=== PATIENT | female | born 1950 | race Caucasian/White ===

== ENCOUNTER 2019-04-23 12:16 | Emergency (ER) | payer MEDICARE, BC, OTHER, SELFPAY ==
[2019-04-23 12:20] VITALS: BP 157/73; PULSE 77; RESP 16; TEMP 36.5; O2SAT 99
--- NOTE | 2019-04-23 12:38 | W.ED.GENAD ---
Discharge Plan Disposition Patient Disposition: HOME Discharge Details Chief Complaint: Laceration Clinical Impression: Laceration of finger of right hand Primary Care Provider: Mik Ortiz ED Provider: Murphy David Home Meds and New Rx's Prescriptions: Continued Cholest Off 450 MG tablet 1 tab PO DAILY RF: 0 cholecalciferol (vitamin D3) [Vitamin D3] 25 mcg (1,000 unit) Capsule 1 mcg PO DAILY RF: 0 colostrum, bovine 500 mg Capsule 500 mg PO DAILY RF: 0 Discharge Instructions Instructions: Finger Laceration (ED), Skin Adhesive Care (ED) Additional Instructions: Keep wound clean, dry, and protected. Change dressing daily and monitor for signs of infection including increased redness, warmth, swelling or discharge. Please contact your primary care physician to arrange follow-up. Return to the ER for any worsening or new concerning symptoms. Referrals: Mik Ortiz MD [Primary Care Provider] - Discharge Data Discharge Date/Time-TO BE ENTERED AT DEPARTURE: 04/23/19 13:52 Medical Decision Making 68-year-old female here with right index finger laceration. Neurovascular intact distally. Wound was anesthetized with lidocaine topical and irrigated with copious sterile saline. Wound repaired with skin adhesive. HPI General Mode of arrival: ambulatory. Date/Time Provider Initiated Documentation: 04/23/19 12:27. Limitations to Documentation: no limitations. Information obtained by: patient. HPI Narrative: 68-year-old female presents with chief complaint of laceration. Patient notes she sustained laceration to her right second digit just prior to arrival. Wound was bleeding initially. Bleeding is improved. No modifiers. Wound is painful. Patient is unsure of last tetanus. Related Data Home Medications Medication Instructions Recorded Confirmed Cholest Off 1 tab PO DAILY 10/06/13 04/23/19 cholecalciferol (vitamin D3) 1 mcg PO DAILY 04/23/19 04/23/19 [Vitamin D3] colostrum, bovine 500 mg PO DAILY 04/23/19 04/23/19 Allergies Allergy/AdvReac Type Severity Reaction Status Date / Time No Known Allergies Allergy Unverified 04/23/19 12:23 General Stated Complaint: Laceration EMILIANA: 4 Review of Systems Musculoskeletal Musculoskeletal: Denies muscle weakness, Denies numbness and Denies tingling Integumentary/Breasts Skin/Breast: Reports as per HPI Neurologic Neurologic: Denies numbness and Denies tingling [facility] Surgical History Biopsy of breast (~2004) B/L section 1977 1975 Colonoscopy - MAC 2001; TUBULAR ADENOMA SKIN BX (~2005) MICROCALCIFICATIONS/REMOVED Tonsillectomy and adenoidectomy (~1980) Family History Mother Essential hypertension Personal history of malignant neoplasm BREAST Heart disease COPD (chronic obstructive pulmonary disease) SMOKER Father , [place] at age 93. Essential hypertension Heart disease CABG/ AORTIC ANEURYSM Hyperlipidemia Myocardial infarction Stroke TIA'S Sister Essential hypertension Hyperlipidemia Grandfather No problems noted. Grandfather Personal history of malignant neoplasm COLON Grandmother Alcohol dependence Heart disease LESIONS Myocardial infarction Grandmother Myocardial infarction Sister Hyperlipidemia Sister Essential hypertension Social History Smoking/Tobacco Use Status: Never Drug use: Never Exam Const General: cooperative and healthy appearing Extrem Right upper extremity: hand Details: normal capillary refill, neuromotor exam normal, neurosensory exam normal, tendon exam normal, tenderness (About laceration) and laceration (Distal second digit, linear); no swelling Course Vital Signs Vital signs: Vital Signs Temperature 36.5 C 04/23/19 12:20 Pulse 77 04/23/19 12:20 Respiratory Rate 16 04/23/19 12:20 Blood Pressure 157/73 H 04/23/19 12:20 Pulse Oximetry 99 04/23/19 12:20 Temperature 36.5 C 04/23/19 12:20 Temperature Source Skin 04/23/19 12:20 Pulse 77 04/23/19 12:20 Respiratory Rate 16 04/23/19 12:20 Respiratory Effort Non-Labored 04/23/19 12:20 Blood Pressure 157/73 H 04/23/19 12:20 Blood Pressure Position Sitting 04/23/19 12:20 Pulse Oximetry 99 04/23/19 12:20 Oxygen Delivery Method Room Air 04/23/19 12:20 Oxygen Flow Rate 0 04/23/19 12:20 Pain Level 1 04/23/19 12:20 Procedures Laceration Laceration 1: Site: hand Side (If applicable): right Size (cm): 1 Description: linear Depth: simple, single layer Pre-repair: irrigated extensively and deep structures intact Skin layer closed with: other (skin adhesive)
== END 2019-04-23 13:52 | disposition home or self-care (01) ==
PROVIDERS: Emergency Provider Student in an Organized Health Care Education/Training Program; PCP Family Medicine
DX: S61.210A Laceration without foreign body of right index finger without damage to nail, initial encounter (principal); W26.8XXA Contact with other sharp object(s), not elsewhere classified, initial encounter
CPT/HCPCS: 12001